=== PATIENT | male | born 1960 | race Caucasian/White ===

== ENCOUNTER 2018-10-27 13:35 | Inpatient (IN) | payer OTHER ==
[2018-10-27 14:19] LABS: ADD MAN DIFF? NO
[2018-10-27 14:24] LABS: ABNORMAL IP MESSAGE 1; BASOPHILS % 0.2 % (0.0-2.0); EOSINOPHILS % 0.2 % (0.0-7.0); HEMATOCRIT 51.6 % (42.0-52.0); HEMOGLOBIN 17.7 g/dl (14.0-18.0); LYMPHOCYTES # 0.6 10^3/ul (0.8-2.9); LYMPHOCYTES % 10.3 % (15.0-51.0); MEAN CORPUSCULAR HEMOGLOBIN 30.8 pg (29.0-33.0); MEAN CORPUSCULAR HGB CONC 34.3 g/dl (32.0-37.0); MEAN CORPUSCULAR VOLUME 89.7 fl (82.0-101.0); MEAN PLATELET VOLUME 10.3 fl (7.4-10.4); MONOCYTE # 0.3 10^3/ul (0.3-0.9); MONOCYTES % 5.3 % (0.0-11.0); NEUTROPHIL # 4.8 10^3/ul (1.6-7.5); NEUTROPHILS % 83.8 % (39.0-77.0); PLATELET COUNT 152 10^3/UL (140-415); POSITIVE DIFF @See below; RED BLOOD COUNT 5.75 10^6/ul (4.70-6.10); RED CELL DISTRIBUTION WIDTH 13.2 % (11.5-14.5)
[2018-10-27 14:24] LABS: WHITE BLOOD COUNT 5.7 10^3/ul (4.8-10.8)
[2018-10-27] MEDS: LIDOCAINE/MYLANTA 40 ML BTL PO (14:26)
[2018-10-27] MEDS: BELLADONNA/PHENOBARBITAL TAB PO (14:26)
[2018-10-27] MEDS: KETOROLAC 15 MG INJ IV (14:26)
[2018-10-27] MEDS: LACTATED RINGER'S 1,000 ML IV (14:27)
[2018-10-27 14:41] LABS: ADD UMIC YES; UR ASCORBIC ACID NEGATIVE (NEGATIVE); UR BACTERIA MANY /HPF (NONE SEEN); UR BILIRUBIN (Dip) NEGATIVE (NEGATIVE); UR BLOOD (Dip) 3+ mg/dL (NEGATIVE); UR BUDDING YEAST MANY /HPF (NONE SEEN); UR CLARITY TURBID (CLEAR); UR COLOR AMBER (YELLOW); UR GLUCOSE (Dip) 3+ mg/dL (NEGATIVE); UR KETONES (Dip) TRACE mg/dL (NEGATIVE); UR LEUKOCYTE ESTERASE (Dip) 3+ Leu/ul (NEGATIVE); UR MUCUS MANY /HPF (NONE SEEN); UR NITRITE (Dip) NEGATIVE (NEGATIVE); UR RBC 56 /HPF (0-5); UR SPECIFIC GRAVITY (Dip) 1.029 (1.003-1.030); UR TOTAL PROTEIN (Dip) 2+ mg/dl (NEGATIVE); UR UROBILINOGEN (Dip) 1+ mg/dL (NEGATIVE); UR WBC > 182 /HPF (0-5)
[2018-10-27 14:46] LABS: ALANINE AMINOTRANSFERASE 25 IU/L (13-69); ALBUMIN 4.8 g/dl (3.3-4.9); ALBUMIN/GLOBULIN RATIO 1.17; ALKALINE PHOSPHATASE 109 IU/L (42-121); ANION GAP 15 (5-13); ASPARTATE AMINO TRANSFERASE 34 IU/L (15-46); BILIRUBIN,INDIRECT 0.5 mg/dl (0-1.1); BILIRUBIN,TOTAL 0.5 mg/dl (0.2-1.3); BLOOD UREA NITROGEN 26 mg/dl (7-20); CALCIUM 9.3 mg/dl (8.4-10.2); CARBON DIOXIDE 23 mmol/L (21-31); CHLORIDE 99 mmol/L (97-110); CREATININE 1.44 mg/dl (0.61-1.24); Estimated GFR 50 mL/min (>60); GLUCOSE 166 mg/dl (70-220); SODIUM 137 mmol/L (135-144); TOTAL PROTEIN 8.9 g/dl (6.1-8.1)
[2018-10-27 14:47] LABS: LIPASE 58 U/L (23-300)
[2018-10-27 14:58] LABS: TROPONIN-I < 0.012 ng/ml (0.000-0.120)
[2018-10-27] MEDS: CEFTRIAXONE 1 GM/50 ML (PMX) 50 ML IVPB (14:58)
[2018-10-27 15:08] LABS: POTASSIUM 2.9 mmol/L (3.5-5.1)
[2018-10-27] MEDS: FLUCONAZOLE 200 MG TAB PO (15:13)
[2018-10-27] MEDS ORDERED: POTASSIUM CHLORIDE 50 ML IVPB (15:30)
[2018-10-27] MEDS: POTASSIUM CHLORIDE (SR) 20 MEQ TAB PO (16:10)
[2018-10-27] MEDS: POTASSIUM CHLORIDE 20 MEQ/SW 100 ML IVPB ×2 (16:11→18:05)
[2018-10-27 16:49] LABS: MAGNESIUM 2.1 mg/dl (1.7-2.5)
[2018-10-27] MEDS ORDERED: NACL 0.9% 3 ML SYG IV (17:00)
[2018-10-27] MEDS ORDERED: morphine 2 MG INJ IV (17:00)
[2018-10-27] MEDS ORDERED: ACETAMINOPHEN 325 MG TAB PO (17:00)
[2018-10-27] MEDS ORDERED: HYDROCODONE/APAP (5/325) TAB PO (17:00)
[2018-10-27] MEDS ORDERED: hydrALAzine 20 MG INJ IV (17:00)
[2018-10-27] MEDS ORDERED: ONDANSETRON 4 MG INJ IV (17:00)
[2018-10-27 17:26] LABS: PHOSPHORUS 4.4 mg/dl (2.5-4.9)
[2018-10-27] MEDS: MAGNESIUM SULFATE 2 GM/50 ML 50 ML IVPB (17:35)
[2018-10-27] MEDS ORDERED: DEXTROSE 50% 50 ML SYRINGE IV ×2 (18:00)
[2018-10-27] MEDS ORDERED: GLUCOSE GEL 15 GRAM TUBE BUCCAL (18:00)
[2018-10-27] MEDS ORDERED: GLUCAGON 1 MG INJ IM (18:00)
[2018-10-27] MEDS ORDERED: GLUCOSE GEL 15 GRAM TUBE PO ×2 (18:00)
[2018-10-27] MEDS: POTASSIUM CHLORIDE 40 MEQ in SOD CHLORIDE 0.9% 1,000 ML IV (20:13)
[2018-10-27] MEDS: INSULIN ASPART [NOVOLOG] 3 ML PEN SC (21:00)
[2018-10-27] MEDS: TAMSULOSIN (SR) 0.4 MG CAP PO (22:32)
[2018-10-28] MEDS: MEROPENEM 1 GM/50ML(PMX) 50 ML IVPB ×3 (00:13→20:58)
[2018-10-28] MEDS: FAMOTIDINE 20 MG INJ IV ×3 (00:13→21:00)
[2018-10-28] MEDS: TAMSULOSIN (SR) 0.4 MG CAP PO ×2 (00:13→21:00)
[2018-10-28] MEDS: ACCU-CHEK XX (02:00)
[2018-10-28 05:44] LABS: ADD MAN DIFF? NO
[2018-10-28 05:55] LABS: ABNORMAL IP MESSAGE 1; BASOPHILS % 0.2 % (0.0-2.0); EOSINOPHILS % 0.2 % (0.0-7.0); HEMATOCRIT 44.8 % (42.0-52.0); HEMOGLOBIN 15.3 g/dl (14.0-18.0); LYMPHOCYTES # 0.6 10^3/ul (0.8-2.9); LYMPHOCYTES % 11.3 % (15.0-51.0); MEAN CORPUSCULAR HGB CONC 34.2 g/dl (32.0-37.0); MEAN CORPUSCULAR VOLUME 90.9 fl (82.0-101.0); MEAN PLATELET VOLUME 10.9 fl (7.4-10.4); MONOCYTE # 0.4 10^3/ul (0.3-0.9); MONOCYTES % 7.8 % (0.0-11.0); NEUTROPHIL # 3.9 10^3/ul (1.6-7.5); NEUTROPHILS % 80.3 % (39.0-77.0); PLATELET COUNT 139 10^3/UL (140-415); POSITIVE DIFF @See below; RED BLOOD COUNT 4.93 10^6/ul (4.70-6.10); RED CELL DISTRIBUTION WIDTH 13.4 % (11.5-14.5)
[2018-10-28 05:55] LABS: WHITE BLOOD COUNT 4.9 10^3/ul (4.8-10.8)
[2018-10-28] MEDS: PANTOPRAZOLE (EC) 40 MG TAB PO (06:03)
[2018-10-28 06:20] LABS: ALANINE AMINOTRANSFERASE 33 IU/L (13-69); ALBUMIN 3.7 g/dl (3.3-4.9); ALBUMIN/GLOBULIN RATIO 1.12; ALKALINE PHOSPHATASE 73 IU/L (42-121); ANION GAP 10 (5-13); ASPARTATE AMINO TRANSFERASE 31 IU/L (15-46); BILIRUBIN,INDIRECT 0.4 mg/dl (0-1.1); BILIRUBIN,TOTAL 0.4 mg/dl (0.2-1.3); BLOOD UREA NITROGEN 27 mg/dl (7-20); CALCIUM 8.5 mg/dl (8.4-10.2); CARBON DIOXIDE 20 mmol/L (21-31); CHLORIDE 106 mmol/L (97-110); CREATININE 1.14 mg/dl (0.61-1.24); Estimated GFR > 60 mL/min (>60); GLUCOSE 109 mg/dl (70-220); MAGNESIUM 2.4 mg/dl (1.7-2.5); PHOSPHORUS 2.8 mg/dl (2.5-4.9); POTASSIUM 3.9 mmol/L (3.5-5.1); SODIUM 136 mmol/L (135-144)
[2018-10-28 06:42] LABS: HEMOGLOBIN A1C 6.2 % (0-5.9)
[2018-10-28] MEDS: INSULIN ASPART [NOVOLOG] 3 ML PEN SC ×4 (08:00→21:00)
[2018-10-28] MEDS: FLUCONAZOLE 100 MG TAB PO (08:33)
[2018-10-28] MEDS: ASPIRIN 81 MG TAB PO (08:33)
[2018-10-28] MEDS: AMLODIPINE 5 MG TAB PO (08:34)
[2018-10-28] MEDS: POTASSIUM CHLORIDE 40 MEQ in SOD CHLORIDE 0.9% 1,000 ML IV ×3 (08:46→21:24)
[2018-10-28] MEDS: ENOXAPARIN 40 MG/0.4 ML SYG SC (08:58)
[2018-10-28] MEDS ORDERED: GUAIFENESIN/DM 5ML CUP PO (13:30)
[2018-10-28] MEDS: LACTOBACILLUS RHAMNOSUS CAP PO (21:00)
[2018-10-29] MEDS: ACCU-CHEK XX (02:00)
[2018-10-29 05:04] LABS: ADD MAN DIFF? NO
[2018-10-29 05:12] LABS: WHITE BLOOD COUNT 3.4 10^3/ul (4.8-10.8)
[2018-10-29 05:12] LABS: BASOPHILS % 0.3 % (0.0-2.0); EOSINOPHILS % 0.6 % (0.0-7.0); HEMATOCRIT 42.4 % (42.0-52.0); HEMOGLOBIN 14.1 g/dl (14.0-18.0); LYMPHOCYTES # 0.9 10^3/ul (0.8-2.9); LYMPHOCYTES % 26.5 % (15.0-51.0); MEAN CORPUSCULAR HEMOGLOBIN 30.6 pg (29.0-33.0); MEAN CORPUSCULAR HGB CONC 33.3 g/dl (32.0-37.0); MEAN PLATELET VOLUME 10.3 fl (7.4-10.4); MONOCYTE # 0.4 10^3/ul (0.3-0.9); NEUTROPHIL # 2.1 10^3/ul (1.6-7.5); NEUTROPHILS % 61.3 % (39.0-77.0); PLATELET COUNT 124 10^3/UL (140-415); RED BLOOD COUNT 4.61 10^6/ul (4.70-6.10); RED CELL DISTRIBUTION WIDTH 13.4 % (11.5-14.5)
[2018-10-29 05:32] LABS: ANION GAP 6 (5-13); BLOOD UREA NITROGEN 16 mg/dl (7-20); CALCIUM 8.6 mg/dl (8.4-10.2); CARBON DIOXIDE 22 mmol/L (21-31); CHLORIDE 109 mmol/L (97-110); CREATININE 1.09 mg/dl (0.61-1.24); Estimated GFR > 60 mL/min (>60); GLUCOSE 95 mg/dl (70-220); POTASSIUM 4.9 mmol/L (3.5-5.1); SODIUM 137 mmol/L (135-144)
[2018-10-29 05:35] LABS: PHOSPHORUS 2.1 mg/dl (2.5-4.9)
[2018-10-29] MEDS: MEROPENEM 1 GM/50ML(PMX) 50 ML IVPB ×2 (08:21→21:13)
[2018-10-29] MEDS: POTASSIUM CHLORIDE 40 MEQ in SOD CHLORIDE 0.9% 1,000 ML IV ×2 (08:21→19:42)
[2018-10-29] MEDS: LACTOBACILLUS RHAMNOSUS CAP PO ×2 (08:21→21:13)
[2018-10-29] MEDS: FLUCONAZOLE 100 MG TAB PO (08:22)
[2018-10-29] MEDS: FAMOTIDINE 20 MG INJ IV ×2 (08:23→21:27)
[2018-10-29] MEDS: AMLODIPINE 5 MG TAB PO (08:23)
[2018-10-29] MEDS: ASPIRIN 81 MG TAB PO (08:24)
[2018-10-29] MEDS: ENOXAPARIN 40 MG/0.4 ML SYG SC (08:27)
[2018-10-29] MEDS: PANTOPRAZOLE (EC) 40 MG TAB PO (08:28)
[2018-10-29] MEDS: INSULIN ASPART [NOVOLOG] 3 ML PEN SC ×4 (08:51→21:00)
[2018-10-29] MEDS: TAMSULOSIN (SR) 0.4 MG CAP PO (21:13)
[2018-10-30] MEDS: ACCU-CHEK XX (02:00)
[2018-10-30 05:14] LABS: ADD MAN DIFF? NO
[2018-10-30 05:37] LABS: WHITE BLOOD COUNT 3.9 10^3/ul (4.8-10.8)
[2018-10-30 05:37] LABS: BASOPHILS % 0.5 % (0.0-2.0); HEMATOCRIT 41.1 % (42.0-52.0); HEMOGLOBIN 13.8 g/dl (14.0-18.0); LYMPHOCYTES # 1.4 10^3/ul (0.8-2.9); LYMPHOCYTES % 36.7 % (15.0-51.0); MEAN CORPUSCULAR HGB CONC 33.6 g/dl (32.0-37.0); MEAN CORPUSCULAR VOLUME 92.4 fl (82.0-101.0); MEAN PLATELET VOLUME 10.8 fl (7.4-10.4); MONOCYTE # 0.4 10^3/ul (0.3-0.9); MONOCYTES % 9.7 % (0.0-11.0); NEUTROPHILS % 52.1 % (39.0-77.0); PLATELET COUNT 123 10^3/UL (140-415); RED BLOOD COUNT 4.45 10^6/ul (4.70-6.10); RED CELL DISTRIBUTION WIDTH 13.4 % (11.5-14.5)
[2018-10-30 06:02] LABS: ANION GAP 6 (5-13); BLOOD UREA NITROGEN 14 mg/dl (7-20); CALCIUM 8.7 mg/dl (8.4-10.2); CARBON DIOXIDE 22 mmol/L (21-31); CHLORIDE 110 mmol/L (97-110); CREATININE 1.02 mg/dl (0.61-1.24); Estimated GFR > 60 mL/min (>60); GLUCOSE 90 mg/dl (70-220); POTASSIUM 4.7 mmol/L (3.5-5.1); SODIUM 138 mmol/L (135-144)
[2018-10-30 06:11] LABS: MAGNESIUM 1.9 mg/dl (1.7-2.5)
[2018-10-30] MEDS: POTASSIUM CHLORIDE 40 MEQ in SOD CHLORIDE 0.9% 1,000 ML IV (06:45)
[2018-10-30] MEDS: INSULIN ASPART [NOVOLOG] 3 ML PEN SC ×2 (07:50→14:45)
[2018-10-30] MEDS: LACTOBACILLUS RHAMNOSUS CAP PO (08:39)
[2018-10-30] MEDS: ASPIRIN 81 MG TAB PO (08:39)
[2018-10-30] MEDS: AMLODIPINE 5 MG TAB PO (08:39)
[2018-10-30] MEDS: FAMOTIDINE 20 MG INJ IV (08:40)
[2018-10-30] MEDS: PANTOPRAZOLE (EC) 40 MG TAB PO (08:40)
[2018-10-30] MEDS: FLUCONAZOLE 100 MG TAB PO (08:40)
[2018-10-30] MEDS: ENOXAPARIN 40 MG/0.4 ML SYG SC (08:41)
[2018-10-30] MEDS: MEROPENEM 1 GM/50ML(PMX) 50 ML IVPB (08:44)
[2018-10-30] MEDS ORDERED: LIDOCAINE 1% (MPF) 5 ML VIAL SC (11:00)
[2018-10-30] MEDS: ERTAPENEM SODIUM 1 GM in SOD CHLORIDE 0.9% 100 ML IVPB (15:14)
== END 2018-10-30 16:40 | disposition home health service (06) | DRG 728 ==
LOC: MS1 10-28 16:37 → E/R 13:35 → 6WM 17:33
PROC: 02HV33Z Insertion of Infusion Device into Superior Vena Cava, Percutaneous Approach (ICD-10-PCS; principal; 2018-10-27)
DX: B37.41 Candidal cystitis and urethritis (principal); N17.9 Acute kidney failure, unspecified; R19.7 Diarrhea, unspecified; E11.9 Type 2 diabetes mellitus without complications; I10 Essential (primary) hypertension; E87.6 Hypokalemia; K21.9 Gastro-esophageal reflux disease without esophagitis; I25.10 Atherosclerotic heart disease of native coronary artery without angina pectoris; N40.0 Benign prostatic hyperplasia without lower urinary tract symptoms; B96.20 Unspecified Escherichia coli [E. coli] as the cause of diseases classified elsewhere; Z16.12 Extended spectrum beta lactamase (ESBL) resistance; Z79.84 Long term (current) use of oral hypoglycemic drugs; Z79.82 Long term (current) use of aspirin; Z87.440 Personal history of urinary (tract) infections
CPT/HCPCS: 36415; 36569; 71045; 74176; 76937; 80048; 80053; 81001; 82962; 83036; 83690; 83735; 84100; 84484; 85025; 86674; 87045; 87075; 87086; 87205; 90686; 93005; 96374; 96375; 99291-25